=== PATIENT | female | born 1935 | race Caucasian/White ===

== ENCOUNTER 2017-03-02 12:50 | Emergency (ER) | payer MEDICARE, OTHER ==
--- NOTE | ~2017-03-02 | ER ---
PATIENT'S NAME: MONICO GARCIA [facility] AGE: 81 Y [address] ROOM: [place] [address] LOCATION: [facility] ADMIT DATE: 03/02/2017 ER/Outpatient Report DISCHARGE DATE: 03/02/2017 FAMILY PHYSICIAN: Prashanth Jewell MD ATTENDING PHYSICIAN: Derrick Alarcon CHIEF COMPLAINT: Weakness. HISTORY OF PRESENT ILLNESS: Ms. Garcia arrives by ambulance from a local residence. She has a history of advanced dementia and chronic kidney disease, as well as hypertension. EMS note that she has had 3 falls in the last few days. The family notes that she has been ambulatory, but then will just a kind of collapse on occasion. Family notes that the patient is DNR, and they do not want aggressive measures and would like to avoid hospitalization if at all reasonable. The patient has no specific complaints, but she is an extremely poor historian. The family notes that these 3 falls, none of them are truly falls as she always has a family member by her side, and she has been gently lowered to the ground or steadied each time. The patient's primary caregiver, her daughter, Laurel, who is in fact the power of research attorney, is not local today as she is coming back from a much needed vacation. She was available by phone, however. PAST MEDICAL HISTORY: Documented on the record and reviewed by me. SOCIAL HISTORY: Documented on the record and reviewed by me. MEDICATIONS: Documented on the record and reviewed by me. ALLERGIES: DOCUMENTED ON THE RECORD AND REVIEWED BY ME. REVIEW OF SYSTEMS: All systems were reviewed and negative except as noted in the HPI. PHYSICAL EXAMINATION: VITAL SIGNS: Blood pressure 142/65, pulse 70, respiratory rate is 18, temperature is 98.4, SpO2 is 90% to 95% on room air. GENERAL: An age-appropriate female, upright on the exam table, in no apparent pain or distress. NEURO: The patient is awake. She is alert. Her GCS is 14. She is not oriented to time, location, or situation. However, she is oriented to self. PATIENT'S NAME: MONICO GARCIA [facility] AGE: 81 Y [address] ROOM: [place] [address] LOCATION: [facility] ADMIT DATE: 03/02/2017 ER/Outpatient Report DISCHARGE DATE: 03/02/2017 FAMILY PHYSICIAN: Prashanth Jewell MD ATTENDING PHYSICIAN: Derrick Alarcon She does not have any recent recall but has decent long-term memory recall. She is able to identify family members relatively well. Family notes this is her baseline. HEENT: Normocephalic, atraumatic. Eyes are PERRL. Oropharynx is clear. NECK: Supple. Trachea is midline. CHEST: Heart is regular rate and rhythm with no murmurs. LUNGS: Clear to auscultation bilateral with no rhonchi, wheezes, or rales. ABDOMEN: Soft, nontender, and nondistended. No rebound or guarding. BACK: Normal to inspection and palpation. There is no CVA tenderness. EXTREMITIES: Warm and well perfused. No tenderness to palpation. No deformities. There is trace edema at the ankles bilateral. SKIN: Clean, dry, and intact. No obvious rashes. LABORATORY DATA AND X-RAYS: Chest x-ray: Slightly under penetrated, no clear infiltrates, slight haziness on the left hemidiaphragm likely positional and secondary to the patient's obesity. EKG: Sinus rhythm, ventricular rate of 70, no comparison EKGs, but no obvious dysrhythmias or ischemic changes. There is some flattening of the T-waves in the precordium. Labs: Lactate is 3.1, sodium 138, potassium 3.4, chloride 104, CO2 is 22, glucose is 110, BUN is 66, creatinine 2.7, GFR is 16. No gross abnormalities of AST, ALT, or alkaline phosphatase. ProBNP is 816. Free T4 is 1.1. TSH 0.672. White count 12.0, hemoglobin 10.3, platelets of 213. Urinalysis with 500 leukocytes, 10 of blood. Micro with 20-50 wbc's, 2-5 rbc's, 2-5 epithelials and many bacteria on a catheterized specimen. IMPRESSION: 1. Acute kidney injury. 2. Urinary tract infection. 3. Diffuse weakness. 4. Advanced dementia. 5. Mild lactic acidemia. EMERGENCY DEPARTMENT COURSE: The patient was seen and evaluated at bedside as above. Family has wished to not proceed with any CT studies of the head and neck region as they feel it is unnecessary and not in line with their wishes for their mother. I spoke with both daughters including the power of research attorney. I have diagnosed acute kidney injury and probable urinary tract infection. The family would like to treat her as an outpatient and follow up with primary care, Dr. Jewell. I did explain the patient would meet admission criteria, and family has elected to not pursue that. They feel as though she will be safe, and they will be able PATIENT'S NAME: MONICO GARCIA [facility] AGE: 81 Y [address] ROOM: [place] [address] LOCATION: [facility] ADMIT DATE: 03/02/2017 ER/Outpatient Report DISCHARGE DATE: 03/02/2017 FAMILY PHYSICIAN: Prashanth Jewell MD ATTENDING PHYSICIAN: Derrick Alarcon to provide adequate cares for her at home. The patient was given 500 mL of normal saline in the ER to help treat her presumed acute kidney injury and mild lactic acidemia. Her exam is not consistent with ischemic bowel or other tissue necrosis. She will get outpatient prescription for ciprofloxacin as this worked for her most recent infection. She was also given a prescription for wheelchair as she was very unsteady in her walker, but family felt she would still do well at home. I have also requested physical therapy evaluation for her unsteadiness using her walker. She has no other acute issues or findings. Again at length, this is the family's decision. I have spoken with Dr. Jewell, the patient's primary care provider, and he is aware of the situation and will see her this week in clinic. Family needs to go see them at their earliest convenience. The patient should return immediately to the emergency department if there is any further concern regarding her functional status. All questions were answered, and the patient was discharged to the care of the family. MD CARO WADSWORTH/nathan /[id number] d: 03/02/171952 t: 03/06/17730, OUTPATIENT REPORT
[2017-03-02 13:17] LABS: BILIRUBIN URINE NEGATIVE (NEGATIVE); BLOOD URINE 10 /UL (NEGATIVE); COLOR URINE YELLOW (YELLOW); GLUCOSE URINE NEGATIVE (NEGATIVE); KETONE URINE NEGATIVE (NEGATIVE); LEUKOCYTES URINE 500 /UL (NEGATIVE); NITRITE URINE NEGATIVE (NEGATIVE); PROTEIN URINE NEGATIVE (NEGATIVE); TURBIDITY URINE 1+ (CLEAR); UROBILINOGEN URINE NORMAL (NORMAL)
[2017-03-02 13:27] LABS: BASOPHIL % 0.2 %; EOSINOPHIL # 0.1 K/uL (0.0-0.5); EOSINOPHIL % 0.7 %; HEMATOCRIT 31.6 % (30.0-46.0); HEMOGLOBIN 10.3 g/dL (10.0-15.0); IMMATURE GRANULOCYTE # 0.1 K/uL (0.0-0.3); IMMATURE GRANULOCYTE % 1.2 %; LYMPHOCYTE # 1.2 K/uL (0.8-4.0); LYMPHOCYTE % 9.8 %; MCH 31.5 pg (27.0-34.0); MCHC 32.6 gm/dL (32.0-36.5); MCV 96.6 fl (83.0-98.0); MONOCYTE # 0.9 K/uL (0.0-1.0); MONOCYTE % 7.7 %; NEUTROPHIL # (ANC) 9.7 K/uL (1.8-7.8); NEUTROPHIL % 80.4 %; NRBC % 0 /100WBC (0-0.00); PLATELET COUNT 213 K/uL (150-450); RBC 3.27 M/uL (3.00-5.00); RDW-CV 12.2 % (11.9-14.6)
[2017-03-02 13:32] LABS: INR - (THERAPEUTIC) 1.02 (0.92-1.07); PROTIME 10.7 SECONDS (9.8-11.4); PTT 27 SECONDS (25-32)
[2017-03-02 13:34] LABS: BACTERIA URINE MANY (NEGATIVE); WBC URINE 20-50 #/HPF (NEGATIVE)
[2017-03-02 13:49] LABS: ALBUMIN 2.9 gm/dL (3.5-5.0); ANION GAP 15.4 (10.0-19.0); CALCIUM 9.9 mg/dL (8.5-10.5); CREATININE 2.7 mg/dL (0.5-1.1); POTASSIUM 3.4 mMol/L (3.7-5.1); TOTAL BILIRUBIN 0.5 mg/dL (0.0-1.5); TOTAL PROTEIN 7.5 g/dL (6.0-8.4)
== END 2017-03-02 17:08 | disposition disaster alternative care site (69) ==
LOC: GACC 12:50
PROVIDERS: Emergency Medicine
DX: N17.9 Acute kidney failure, unspecified (principal); N39.0 Urinary tract infection, site not specified; I13.0 Hypertensive heart and chronic kidney disease with heart failure and stage 1 through stage 4 chronic kidney disease, or unspecified chronic kidney disease; N18.9 Chronic kidney disease, unspecified; I50.9 Heart failure, unspecified; F03.90 Unspecified dementia, unspecified severity, without behavioral disturbance, psychotic disturbance, mood disturbance, and anxiety; E87.2 Acidosis; Z79.899 Other long term (current) drug therapy; Z88.5 Allergy status to narcotic agent; Z66 Do not resuscitate
CPT/HCPCS: J0696; J7030

== ENCOUNTER → 2017-03-02 | Outpatient (CLI) | payer MEDICARE, OTHER | END | disposition disaster alternative care site (69) | LOC: GAMB 12:17 | DX: R53.1 Weakness (principal); Z86.59 Personal history of other mental and behavioral disorders; W19.XXXA Unspecified fall, initial encounter | CPT/HCPCS: A0425; A0427 ==